=== PATIENT | male | born 1995 | race Two or more races ===

== ENCOUNTER 2016-10-07 17:38 | Emergency (ER) | payer SELFPAY ==
[~2016-10-07] VITALS: Ht 160 cm; Wt 68.0 kg
[2016-10-07 18:09] VITALS: BP 111/72
== END 2016-10-08 01:09 | disposition left against medical advice (07) ==
LOC: ER 17:38
DX: R51 Headache (principal); Z53.21 Procedure and treatment not carried out due to patient leaving prior to being seen by health care provider